=== PATIENT | female | born 1970 | race African-American/Black ===

== ENCOUNTER 2021-06-28 18:26 | Emergency (ER) | payer BC ==
[~2021-06-28] VITALS: Ht 149.9 cm; Wt 121.1 kg
[2021-06-28 19:18] LABS: ABSOLUTE NEUTROPHILS 3.1 thou/uL (1.4-8.2); BASOPHILS 0.8 % (0.0-2.0); EOSINOPHILS 4.1 % (0.0-3.0); HEMATOCRIT 43.7 % (37.0-47.0); HEMOGLOBIN 14.7 gm/dL (12.0-15.0); LYMPHOCYTES 37.6 % (24.0-44.0); MCH 30.1 pg (26.0-34.0); MCHC 33.6 g/dL (28.0-37.0); MCV 89.8 fL (80.0-100.0); PLATELET COUNT 336 thou/uL (150-400); POLYS 49.5 % (36.0-66.0); RBC 4.87 mil/uL (4.20-5.00); RDW 13.7 % (10.5-14.5); WBC 6.4 thou/uL (4.0-11.0)
[2021-06-28 19:37] LABS: CALCIUM 9.5 mg/dL (8.5-10.1); CREATININE 1.3 mg/dL (0.6-1.0); POTASSIUM 4.4 mmol/L (3.5-5.1)
[2021-06-28 19:49] LABS: ALBUMIN 4.1 g/dL (3.4-5.0); MAGNESIUM 2.1 mg/dL (1.8-2.4); TOTAL BILIRUBIN 0.4 mg/dL (0.2-1.0); TOTAL PROTEIN 7.8 g/dL (6.4-8.2)
[2021-06-28 23:28] VITALS: BP 105/51
--- NOTE | 2021-06-29 08:32 | EKG ---
[place] [address] [employer] [facility] [place] [address] ELECTROCARDIOGRAM REPORT Name: FRANDY BERNAL Room #: [facility] [id number] Admission: 06/28/21 Attend Phys: Discharge: 06/28/21 Date of : 68 Report #: [id number] [facility] ED Test Date: 2021-06-28 Test Time: 21:39:45 Pat Name: FRANDY BERNAL Department: Room: Gender: Pig Breeder: NAS : 1970 Requested By: Pippa Zavala Order Number: [id number] MD: Dimas Mina Measurements Intervals [place] Rate: 82 P: 60 MD: 112 QRS: 11 QRSD: 84 T: 1 QT: 357 QTc: 417 Interpretive Statements Sinus rhythm Borderline short MD interval No previous ECG available for comparison Electronically Signed On 06-29-2021 8:31:51 [employer] by Dimas Mina [email or web address] <ELECTRONICALLY SIGNED> By: Dimas Mina MD, [facility] 06/29/21 0831 [id number] Dimas Mina MD, FACC /EPI
== END 2021-06-28 23:31 | disposition home or self-care (01) ==
LOC: ER 18:26
PROVIDERS: Emergency Medicine
DX: R42 Dizziness and giddiness (principal); I10 Essential (primary) hypertension; E11.9 Type 2 diabetes mellitus without complications